=== PATIENT | male | born 1940 | race Two or more races ===

== ENCOUNTER → 2025-01-07 | Outpatient (CLI) | payer MEDICARE, MEDICAID, SELFPAY ==
--- NOTE | 2025-01-07 09:15 | XR_ITS ---
Examination: Retroperitoneal ultrasound, complete Technique: Multiple high resolution grayscale images of the retroperitoneum obtained, including kidneys and bladder. Exam date and time:January 07, 2025 0930 hours INDICATIONS: Status post right nephrectomy 2009, chronic kidney disease diagnosis beginning 3 years ago FINDINGS: Absent right kidney Left kidney 12.1 cm cortex 2.2 cm Mild left renal parenchymal scar formation, no hydronephrosis No bladder mass or bladder calculi, bladder prevoid volume 304 cc postvoid volume 91 cc Prostate volume 13 cc no prostate nodules IMPRESSION: Absent right kidney Mild left renal parenchymal scar formation No left hydronephrosis
== END | disposition home or self-care (01) ==
PROVIDERS: PCP Family Medicine; Referring Provider Internal Medicine Nephrology; Visit Provider Internal Medicine Nephrology
DX: N28.89 Other specified disorders of kidney and ureter (principal); Z90.5 Acquired absence of kidney
CPT/HCPCS: 76770